=== PATIENT | female | born 1950 | race Caucasian/White ===

== ENCOUNTER 2023-11-20 11:27 | Inpatient (IN) | payer OTHER ==
[~2023-11-20] VITALS: Ht 335.3 cm; Wt 63.5 kg
[2023-11-20] MEDS ORDERED: CLON0.5T4 PO (11:43)
[2023-11-20] MEDS ORDERED: GABA-532 PO (11:43)
[2023-11-20] MEDS ORDERED: HYDR2TAB7 PO (11:43)
[2023-11-20] MEDS ORDERED: ATOR20TA (11:43)
[2023-11-20] MEDS ORDERED: LOSA25TA27 PO (11:43)
[2023-11-20] MEDS ORDERED: ONDANSETRON 4 MG/2 ML VIAL ONE (11:51)
[2023-11-20] MEDS ORDERED: MORPHINE SULFATE 2 MG/1 ML DISP.SYRIN ONE (11:52)
[2023-11-20] MEDS: ONDANSETRON 4 MG/2 ML VIAL IV ONE (11:53)
[2023-11-20] MEDS: MORPHINE SULFATE 2 MG/1 ML DISP.SYRIN IV ONE (11:55)
[2023-11-20] MEDS ORDERED: FENTANYL CITRATE 100 MCG/2 ML AMPUL ONE (12:16)
[2023-11-20] MEDS: FENTANYL CITRATE 100 MCG/2 ML AMPUL IV ONE (12:20)
[2023-11-20 12:24] LABS: BASOPHILS # (AUTO) 0.1 K/UL (0.0-0.2); BASOPHILS % (AUTO) 0.9 % (0.0-2.0); EOSINOPHILS # (AUTO) 0.2 K/uL (0.0-0.7); EOSINOPHILS % (AUTO) 2.9 % (0.0-7.0); HEMOGLOBIN 10.3 g/dL (10.9-14.3); LYMPHOCYTES # (AUTO) 2.2 K/uL (0.8-4.8); LYMPHOCYTES % (AUTO) 26.6 % (20.5-51.5); MEAN CORPUSCULAR HEMOGLOBIN 32.7 uug (24.7-32.8); MEAN CORPUSCULAR HGB CONC 34 g/dL (32.3-35.6); MEAN CORPUSCULAR VOLUME 95.3 fL (75.5-95.3); MONOCYTES # (AUTO) 0.6 K/uL (0.1-1.30); MONOCYTES % (AUTO) 7.1 % (0.0-11.0); NEUTROPHILS # (AUTO) 5.1 K/uL (1.8-8.9); NEUTROPHILS % (AUTO) 62.5 % (38.5-71.5); PLATELET COUNT (AUTO) 360 K/uL (179-408); RED BLOOD CELL COUNT(AUTO) 3.15 MIL/uL (3.63-4.92); RED CELL DISTRIBUTION WIDTH 14.6 % (12.3-17.7); WHITE BLOOD COUNT (AUTO) 8.2 K/uL (3.8-11.8)
[2023-11-20] MEDS: IV NS 1000 ML 1,000 ML IV ONE (12:26)
[2023-11-20 12:27] LABS: CALCIUM 9.8 mg/dL (8.5-10.1); CARBON DIOXIDE 21 mmol/L (21-32); CHLORIDE 102 mmol/L (98-107); GLUCOSE 158 mg/dL (74-106); POTASSIUM 3.7 mmol/L (3.5-5.1); SODIUM SERUM 137 mmol/L (136-145); UREA NITROGEN, BLOOD 33 mg/dL (7-18)
[2023-11-20 12:30] LABS: DIFFERENTIAL COMMENT 1
[2023-11-20 12:39] LABS: ALANINE AMINOTRANSFERASE 16 U/L (14-59); ALBUMIN 3.5 g/dL (3.4-5.0); ALKALINE PHOSPHATASE 70 U/L (50-136); ASPARTATE AMINOTRANSFERASE 19 U/L (15-37); BILIRUBIN,DIRECT 0.1 mg/dL (0.0-0.2); BILIRUBIN,TOTAL 0.4 mg/dL (0.2-1.0); LIPASE 42 U/L (16-77); TOTAL PROTEIN, SERUM 7.4 g/dL (6.4-8.2)
[2023-11-20 13:17] LABS: *BILIRUBIN,URIN NEGATIVE (NEGATIVE); *BLOOD, URINE NEGATIVE (NEGATIVE); *CLARITY,URINE CLEAR (CLEAR); *COLOR,URINE YELLOW (YELLOW); *KETONES,URINE NEGATIVE (NEGATIVE); *PROTEIN,URINE NEGATIVE (NEGATIVE); *UROBILINOGEN,URINE 0.2 E.U./dl (NORMAL); LEUKOCYTE ESTERASE ,URINE NEGATIVE (NEGATIVE); NITRITE, URINE NEGATIVE (NEGATIVE); UGLUCOSE NEGATIVE (NEGATIVE)
[2023-11-20] MEDS ORDERED: PIPERACILLIN/TAZOBACTAM/D5W 50 ML IV ONE (15:00)
[2023-11-20] MEDS: PIPERACILLIN SODIUM/TAZOBACTAM 3.375 G in IV DEXTROSE 5% 50 ML IV ONE (15:05)
[2023-11-20] MEDS: HYDROMORPHONE 1 MG/1 ML DISP.SYRIN IV ONE (16:56)
[2023-11-20] MEDS ORDERED: MORPHINE SULFATE 2 MG/1 ML DISP.SYRIN IV PRN (17:45)
[2023-11-20] MEDS ORDERED: METOPROLOL TARTRATE 5 MG/5 ML VIAL IVP PRN (17:45)
[2023-11-20] MEDS ORDERED: ONDANSETRON 4 MG/2 ML VIAL IV PRN (17:45)
[2023-11-20 21:00] VITALS: BP 117/65; TEMP 97.9; O2SAT 100
[2023-11-20] MEDS ORDERED: IV D5W-0.45% NS +20 KCL 1,000 ML IV ONE (23:39)
[2023-11-21] MEDS: POTASSIUM CHLORIDE 20 MEQ in IV D5 1/2 NS 1000 ML 1,000 ML IV PRN (00:02)
[2023-11-21 00:08] VITALS: BP 138/68; TEMP 97.8; O2SAT 98
[2023-11-21 06:11] VITALS: BP 111/58; TEMP 97.6; O2SAT 95
[2023-11-21 07:11] LABS: BASOPHILS # (AUTO) 0.1 K/UL (0.0-0.2); BASOPHILS % (AUTO) 0.9 % (0.0-2.0); EOSINOPHILS # (AUTO) 0.5 K/uL (0.0-0.7); EOSINOPHILS % (AUTO) 8.3 % (0.0-7.0); HEMATOCRIT 26.6 % (31.2-41.9); HEMOGLOBIN 9.2 g/dL (10.9-14.3); LYMPHOCYTES # (AUTO) 1.2 K/uL (0.8-4.8); LYMPHOCYTES % (AUTO) 19.7 % (20.5-51.5); MEAN CORPUSCULAR HEMOGLOBIN 33.4 uug (24.7-32.8); MEAN CORPUSCULAR HGB CONC 35 g/dL (32.3-35.6); MEAN CORPUSCULAR VOLUME 96.7 fL (75.5-95.3); MONOCYTES # (AUTO) 0.5 K/uL (0.1-1.30); MONOCYTES % (AUTO) 7.8 % (0.0-11.0); NEUTROPHILS # (AUTO) 3.8 K/uL (1.8-8.9); NEUTROPHILS % (AUTO) 63.3 % (38.5-71.5); PLATELET COUNT (AUTO) 283 K/uL (179-408); RED BLOOD CELL COUNT(AUTO) 2.75 MIL/uL (3.63-4.92); RED CELL DISTRIBUTION WIDTH 14.8 % (12.3-17.7)
[2023-11-21 07:42] LABS: ALANINE AMINOTRANSFERASE 18 U/L (14-59); ALBUMIN 2.8 g/dL (3.4-5.0); ALKALINE PHOSPHATASE 56 U/L (50-136); ASPARTATE AMINOTRANSFERASE 15 U/L (15-37); BILIRUBIN,TOTAL 0.3 mg/dL (0.2-1.0); CARBON DIOXIDE 28 mmol/L (21-32); CHLORIDE 108 mmol/L (98-107); CHOLESTEROL 170 mg/dL (<200); CREATININE 1.9 mg/dL (0.6-1.3); GLUCOSE 104 mg/dL (74-106); HDL CHOLESTEROL 61 mg/dL (40-60); MAGNESIUM 2.1 mg/dL (1.8-2.4); PHOSPHOROUS 4.3 mg/dL (2.5-4.9); POTASSIUM 4.2 mmol/L (3.5-5.1); SODIUM SERUM 142 mmol/L (136-145); TOTAL PROTEIN, SERUM 6.2 g/dL (6.4-8.2); TRIGLYCERIDES 98 MG/DL (30-150); UREA NITROGEN, BLOOD 26 mg/dL (7-18)
[2023-11-21 07:44] LABS: DIFFERENTIAL COMMENT 1
[2023-11-21 08:08] VITALS: BP 121/64; TEMP 98; O2SAT 95
[2023-11-21 12:00] VITALS: BP 125/76; TEMP 97.6; O2SAT 97
[2023-11-21] MEDS: ACETAMINOPHEN 650 MG SUPP.RECT RC PRN (12:29)
[2023-11-21] MEDS ORDERED: Morphine Sulfate Inj IV (13:37)
[2023-11-21] MEDS ORDERED: ONDA4VIA23 IV (13:37)
[2023-11-21] MEDS ORDERED: METO5VIA IVP (13:37)
[2023-11-21] MEDS ORDERED: ACET650S13 RC (13:37)
[2023-11-21 15:13] VITALS: BP 122/70; TEMP 98.3; O2SAT 95
== END 2023-11-21 16:45 | disposition short-term general hospital (02) | DRG 393 ==
LOC: ER 11:27 → MEDSURG3 20:03 → TELE3 20:13
PROVIDERS: ADMIT Internal Medicine; ATTEND Internal Medicine
DX: K46.0 Unspecified abdominal hernia with obstruction, without gangrene (principal); N17.0 Acute kidney failure with tubular necrosis; Z90.5 Acquired absence of kidney; R73.9 Hyperglycemia, unspecified; D53.9 Nutritional anemia, unspecified; Z90.710 Acquired absence of both cervix and uterus; Z90.49 Acquired absence of other specified parts of digestive tract; Z85.528 Personal history of other malignant neoplasm of kidney; E04.1 Nontoxic single thyroid nodule; I12.9 Hypertensive chronic kidney disease with stage 1 through stage 4 chronic kidney disease, or unspecified chronic kidney disease; N18.9 Chronic kidney disease, unspecified; Z91.041 Radiographic dye allergy status
CPT/HCPCS: 36415; 71045; 71250; 83605; 83690; 83735; 84100; 84443; 84484; 85025; 85730; 93005; G0378; J2270; J2405; J2543; J3010; J3480